=== PATIENT | female | born 1965 | race Caucasian/White ===

== ENCOUNTER 2019-08-20 09:16 | Emergency (ER) | payer MEDICARE, BC ==
[2019-08-20] MEDS ORDERED: Albuterol/Ipratropium 3.0-0.5 MG/3 ML Neb Soln NEB ONE ×2 (09:35→10:06)
--- NOTE | 2019-08-20 09:44 | EDM.PDOC ---
ED HPI GENERAL MEDICAL PROBLEM - General Chief Complaint: Respiratory Problem Stated Complaint: SOB Time Seen by Provider: 08/20/19 09:30 Source of Information: Reports: Patient History Limitations: Reports: No Limitations - History of Present Illness INITIAL COMMENTS - FREE TEXT/NARRATIVE: pt states she has COPD , fell ill on Tuesday with cough , was seen in clinic on tuesday and prescribed and antibiotic, vomiting alot on tuesday but tuesday felt better so went to the [facility] . Since then has been worse , cough more productive , has sob with tightness in chest , cough with pink tinge , has been on OTC cough medication states she does not have an inhaler, does not use oxygen at home Onset: Gradual Onset Date: 08/13/19 Duration: Getting Worse Location: Reports: Chest Quality: Reports: Ache, Pressure Severity: Moderate Improves with: Reports: Rest. Denies: Medication Worsens with: Reports: Breathing, Movement Context: Reports: Other Associated Symptoms: Reports: Cough, Fever/Chills, Headaches, Loss of Appetite, Malaise, Nausea/Vomiting Other Treatments [employer]: antibioitcs and OTC med for cough throat Pain Score (Numeric/FACES): 3 - Related Data Allergies Allergy/AdvReac Type Severity Reaction Status Date / Time morphine Allergy Respiratory Verified 08/30/14 11:25 Distress Home Meds: Home Meds guaiFENesin [Mucinex] 600 mg PO BID #30 tab.er.12h 08/20/19 [Rx] predniSONE 40 mg PO WITHBREAKFAST #5 tab 08/20/19 [Rx] Social & Family History - Tobacco Use Smoking Status *Q: Former Smoker Years of Tobacco use: 15 Used Tobacco, but Quit: Yes Month/Year Tobacco Last Used: 08/2002 - Caffeine Use Caffeine Use: Reports: Soda ED ROS GENERAL - Review of Systems Review Of Systems: Comprehensive ROS is negative, except as noted in HPI. Constitutional: Reports: Chills, Malaise HEENT: Reports: No Symptoms Respiratory: Reports: Shortness of Breath, Wheezing, Cough, Sputum Cardiovascular: Reports: Dyspnea on Exertion. Denies: Chest Pain, Edema Endocrine: Reports: Fatigue GI/Abdominal: Reports: No Symptoms : Reports: No Symptoms Musculoskeletal: Reports: No Symptoms Skin: Reports: No Symptoms Neurological: Reports: No Symptoms Psychiatric: Reports: No Symptoms Hematologic/Lymphatic: Reports: No Symptoms ED EXAM, GENERAL - Physical Exam Exam: See Below Exam Limited By: No Limitations General Appearance: Alert, WD/WN, No Apparent Distress Eye Exam: Bilateral Eye: EOMI Ears: Normal External Exam Ear Exam: Bilateral Ear: Auricle Normal, TM normal Nose: Normal Inspection. No: Clear Rhinorrhea Throat/Mouth: Normal Oropharynx Head: Atraumatic, Normocephalic, Facial Tenderness Neck: Supple, Non-Tender, Full Range of Motion Respiratory/Chest: Decreased Breath Sounds (reduced aeration bilaterally), Rhonchi, Wheezing (scattered in both lungs) Cardiovascular: Regular Rate, Rhythm GI/Abdominal: Soft, Non-Tender Back Exam: Normal Inspection, Full Range of Motion Extremities: Normal Range of Motion, Non-Tender, No Pedal Edema Neurological: Alert, Oriented, Normal Cognition, Normal Gait Psychiatric: Normal Affect Skin Exam: Warm Course - Vital Signs Last Recorded V/S: Last Vital Signs Temp 36.4 C 08/20/19 09:20 Pulse 81 08/20/19 10:20 Resp 24 H 08/20/19 10:20 BP 149/70 H 08/20/19 10:20 Pulse Ox 93 L 08/20/19 10:20 - Orders/Labs/Meds Orders: Active Orders 24 hr Category Date Time Status RT Aerosol Therapy [RC] ASDIRECTED Care 08/20/19 09:35 Active RT Aerosol Therapy [RC] ASDIRECTED Care 08/20/19 10:06 Active Chest 2V [CR] Stat Exams 08/20/19 09:45 Taken Meds: Medications Discontinued Medications Generic Name Dose Route Start Last Admin Trade Name Gaby PRN Reason Stop Dose Admin Albuterol/Ipratropium 3 ml 08/20/19 09:35 08/20/19 09:43 Duoneb 3.0-0.5 Mg/3 Ml NEB 08/20/19 09:36 3 ml ONETIME ONE Administration Albuterol/Ipratropium 3 ml 08/20/19 10:06 08/20/19 10:14 Duoneb 3.0-0.5 Mg/3 Ml NEB 08/20/19 10:07 3 ml ONETIME ONE Administration Ceftriaxone Sodium 1 gm 08/20/19 10:17 Rocephin IM 08/20/19 10:18 ONETIME ONE Guaifenesin 1,200 mg 08/20/19 09:47 08/20/19 10:14 Mucinex PO 08/20/19 09:48 1,200 mg ONETIME ONE Administration Prednisone 40 mg 08/20/19 09:46 08/20/19 10:14 Prednisone PO 08/20/19 09:47 40 mg ONETIME ONE Administration - Re-Assessments/Exams Free Text/Narrative Re-Assessment/Exam: 08/20/19 10:19 had initial duoneb, lungs had more aeration , but noted now to have basal crackles especially in the left lung base. Chest xray shows increased lung marking s, will repeat Duoneb Free Text/Narrative Re-Assessment/Exam: 08/20/19 10:33 seems much better after 2nd doneb, pt has symbicort and Proair at home, Encouraged to use them . Will need to complete course of augmentin as prescribed 08/20/19 10:37 cxray showed increased lung markings suggestive of inflammation in the airways Departure - Departure Time of Disposition: 10:40 Disposition: Home, Self-Care 01 Condition: Fair Clinical Impression: COPD exacerbation, Wheezing on auscultation, Acute bronchitis - Discharge Information *PRESCRIPTION DRUG MONITORING PROGRAM REVIEWED*: Not Applicable *COPY OF PRESCRIPTION DRUG MONITORING REPORT IN PATIENT BRENDA: Not Applicable Prescriptions: guaiFENesin [Mucinex] 600 mg PO BID #30 tab.er.12h predniSONE 40 mg PO WITHBREAKFAST #5 tab Instructions: Chronic Obstructive Pulmonary Disease Exacerbation, [id number] Referrals: PCP,Not In Area [Primary Care Provider] - Forms: ED Department Discharge Sepsis Event Note - Evaluation Sepsis Screening Result: No Definite Risk - Focused Exam Vital Signs: Vital Signs Temp Pulse Resp BP Pulse Ox 08/20/19 10:20 81 24 H 149/70 H 93 L 08/20/19 09:20 36.4 C 81 24 H 148/68 H 93 L Date Exam was Performed: 08/20/19 Time Exam was Performed: 10:33 - My Orders Last 24 Hours: My Active Orders 08/20/19 09:35 RT Aerosol Therapy [RC] ASDIRECTED 08/20/19 09:45 Chest 2V [CR] Stat 08/20/19 10:06 RT Aerosol Therapy [RC] ASDIRECTED - Assessment/Plan Last 24 Hours: My Active Orders 08/20/19 09:35 RT Aerosol Therapy [RC] ASDIRECTED 08/20/19 09:45 Chest 2V [CR] Stat 08/20/19 10:06 RT Aerosol Therapy [RC] ASDIRECTED
[2019-08-20] MEDS ORDERED: predniSONE 20 MG Tab PO ONE (09:46)
[2019-08-20] MEDS ORDERED: guaiFENesin 600 MG Tab.ER PO ONE (09:47)
[2019-08-20] MEDS ORDERED: cefTRIAXone 1 GM Vial IM ONE (10:17)
[2019-08-20 10:42] VITALS: BP 138/89; PULSE 84
--- NOTE | 2019-08-20 11:23 | CR ---
INDICATION: Cough and shortness of breath. CHEST, 2 VIEWS: PA and lateral views of the chest, 08/20/19, were compared with 08/30/14 and revealed the heart to appear enlarged and increased in size compared with the previous study. Pulmonary vasculature is slightly prominent raising question of a minimal or early CHF. Additionally, there is interstitial and some alveolar infiltration in the mid-to -lower lung correia alveoli, mostly in the lung bases and right midlung field laterally. Findings may represent pneumonia and pleuritis, although acute pulmonary edema of an unusual type could be present. The possibility of aspiration pneumonia would be a consideration. A minimal dextroconcave scoliosis of the thoracic spine is noted. Flattened diaphragm leaves, slightly prominent AP diameter and mild hyperaeration also suggest the possibility of COPD. IMPRESSION: 1. ASHD with possible minimal or early CHF. Cannot exclude acute pulmonary edema and interstitial lung edema. 2. Infiltrates mentioned above may be on the basis of pneumonia, possibly with minimal pleuritis, as posterior sulci are not well visualized. Unusual pneumonia, such as an aspiration pneumonia, would be a consideration. MTDD
== END 2019-08-20 10:55 | disposition home or self-care (01) ==
LOC: FB.ED 09:16
DX: J44.0 Chronic obstructive pulmonary disease with (acute) lower respiratory infection (principal); J20.9 Acute bronchitis, unspecified; J44.1 Chronic obstructive pulmonary disease with (acute) exacerbation; Z88.5 Allergy status to narcotic agent; Z87.891 Personal history of nicotine dependence
CPT/HCPCS: 71046; 94640; 96372; 99284; 99285; A9270; J0696; J7620-GY

== ENCOUNTER 2022-02-01 12:26 | Emergency (ER) | payer OTHER, MEDICARE, BC ==
[2022-02-01] MEDS ORDERED: LORazepam 2 MG/ML SDV IVPUSH ONE (12:35)
[2022-02-01] MEDS ORDERED: Thiamine 100 MG Tab PO ONE (12:35)
[2022-02-01] MEDS ORDERED: Valproic Acid 250 MG Cap PO ONE (12:53)
[2022-02-01] MEDS: Sodium Chloride 0.9% 10 ML Syringe FLUSH PRN ×2 (13:05→15:07)
[2022-02-01 13:16] LABS: ESTIMATED GFR 67 mL/min (>60)
[2022-02-01] MEDS ORDERED: Acetaminophen 500 MG Tab PO ONE (13:27)
[2022-02-01] MEDS ORDERED: Atenolol 50 MG Tab PO ONE (13:27)
[2022-02-01] MEDS ORDERED: Lisinopril 20 MG Tab PO STA (13:33)
[2022-02-01] MEDS ORDERED: hydrALAZINE 20 MG/ML SDV IVPUSH ONE (13:58)
[2022-02-01] MEDS ORDERED: HYDROmorphone 2 MG/ML SDV IVPUSH ONE (14:30)
[2022-02-01] MEDS ORDERED: Ketorolac 30 MG/ML SDV IVPUSH ONE (15:22)
[2022-02-01 20:35] VITALS: BP 197/84; PULSE 64
== END 2022-02-01 16:10 ==
LOC: FB.ED 12:26
DX: R56.9 Unspecified convulsions (principal); R51.9 Headache, unspecified; J44.9 Chronic obstructive pulmonary disease, unspecified; I10 Essential (primary) hypertension; Z88.5 Allergy status to narcotic agent; Z79.899 Other long term (current) drug therapy
CPT/HCPCS: 36415; 70450; 80053; 81001; 85027; 96374; 96375; 99282; 99285-25; A9270-GY; J0360; J1170; J1885; J2060; J3490

== ENCOUNTER 2022-02-02 06:58 | Emergency (ER) | payer MEDICARE, BC ==
[2022-02-02] MEDS: diphenhydrAMINE 50 MG/ML SDV IVPUSH ONE ×2 (07:33→11:02)
[2022-02-02] MEDS: levETIRAcetam 1,000 MG in Sodium Chloride 0.9% 100 ML IV ONE (07:33)
[2022-02-02] MEDS: Prochlorperazine 10 MG/2 ML SDV IVPUSH ONE (07:34)
[2022-02-02] MEDS: Sodium Chloride 0.9% 1,000 ML IV ONE (07:35)
[2022-02-02] MEDS: Sodium Chloride 0.9% 10 ML Syringe FLUSH PRN (07:35)
[2022-02-02 07:53] LABS: ESTIMATED GFR 60 mL/min (>60)
[2022-02-02] MEDS: Ketorolac 30 MG/ML SDV IVPUSH ONE (08:55)
[2022-02-02] MEDS: LORazepam 2 MG/ML SDV IVPUSH ONE (09:11)
[2022-02-02] MEDS: Gabapentin 600 MG Tab PO ONE (10:03)
[2022-02-02 11:37] VITALS: BP 165/72; PULSE 71
== END 2022-02-02 10:25 ==
LOC: FB.ED 06:58
DX: G43.009 Migraine without aura, not intractable, without status migrainosus (principal); G40.909 Epilepsy, unspecified, not intractable, without status epilepticus; J44.9 Chronic obstructive pulmonary disease, unspecified; I10 Essential (primary) hypertension; E66.9 Obesity, unspecified; K21.9 Gastro-esophageal reflux disease without esophagitis; Z88.5 Allergy status to narcotic agent; Z79.899 Other long term (current) drug therapy; Z88.8 Allergy status to other drugs, medicaments and biological substances; Z68.41 Body mass index [BMI] 40.0-44.9, adult
CPT/HCPCS: 36415; 80048; 85025; 96361; 96365; 96375; 99282; 99285-25; A9270-GY; J0780; J1200; J1885; J1953; J2060; J3490; J7030

== ENCOUNTER 2022-02-06 12:56 | Emergency (ER) | payer MEDICARE, BC ==
[2022-02-06 13:21] VITALS: BP 153/83; PULSE 61
== END 2022-02-06 13:35 | disposition home or self-care (01) ==
LOC: FB.ED 12:56
DX: R56.9 Unspecified convulsions (principal)
CPT/HCPCS: 99281; 99284

== ENCOUNTER 2023-06-08 08:03 | Emergency (ER) | payer MEDICARE, MEDICAID ==
[2023-06-08] MEDS ORDERED: Ibuprofen 800 MG Tab PO ONE (08:20)
[2023-06-08] MEDS ORDERED: Acetaminophen 500 MG Tab PO ONE (08:20)
[2023-06-08] MEDS ORDERED: Pantoprazole 40 MG Tab.CR PO SCH (12:20)
[2023-06-09] MEDS ORDERED: Atenolol 50 MG Tab PO ONE (02:41)
[2023-06-09] MEDS ORDERED: Albuterol 6.7 GM Inhaler INH PRN (02:44)
[2023-06-09] MEDS ORDERED: Venlafaxine 75 MG Tab PO SCH ×2 (02:45→09:00)
[2023-06-09] MEDS ORDERED: levETIRAcetam 500 MG Tab PO SCH ×8 (02:45→09:00)
[2023-06-09] MEDS ORDERED: Venlafaxine 75 MG Tab PO ONE (03:39)
[2023-06-09] MEDS ORDERED: rOPINIRole 1 MG Tab PO ONE (05:16)
[2023-06-09] MEDS ORDERED: Pantoprazole 40 MG Tab.CR PO SCH (06:00)
[2023-06-09] MEDS ORDERED: Pantoprazole 40 MG Tab.CR ONE (08:46)
[2023-06-09] MEDS ORDERED: Atenolol 50 MG Tab PO SCH (09:00)
[2023-06-09] MEDS ORDERED: Gabapentin 600 MG Tab PO SCH ×4 (09:00)
[2023-06-09 09:35] VITALS: PULSE 65
[2023-06-09 15:30] VITALS: BP 144/100
[2023-06-09] MEDS ORDERED: rOPINIRole 1 MG Tab PO SCH ×4 (21:00)
[2023-06-09] MEDS ORDERED: Venlafaxine 75 MG Cap.ER PO SCH ×2 (21:00)
[2023-06-10] MEDS ORDERED: Pantoprazole 40 MG Tab.CR PO SCH (07:30)
== END 2023-06-09 15:20 | disposition home or self-care (01) ==
LOC: FB.ED 08:03
DX: F60.0 Paranoid personality disorder (principal); F22 Delusional disorders; G31.84 Mild cognitive impairment of uncertain or unknown etiology; I10 Essential (primary) hypertension; K21.9 Gastro-esophageal reflux disease without esophagitis; J44.9 Chronic obstructive pulmonary disease, unspecified; E66.9 Obesity, unspecified; Z68.41 Body mass index [BMI] 40.0-44.9, adult; Z86.16 Personal history of COVID-19; Z79.899 Other long term (current) drug therapy; Z87.891 Personal history of nicotine dependence; Z91.030 Bee allergy status; Z88.5 Allergy status to narcotic agent; Z88.6 Allergy status to analgesic agent; Z20.822 Contact with and (suspected) exposure to COVID-19
CPT/HCPCS: 99285; A9270-GY

== ENCOUNTER 2024-02-12 09:08 | Emergency (ER) | payer MEDICAID, MEDICARE ==
[2024-02-12] MEDS: levETIRAcetam in NaCl (iso-os) 1,000 MG in Premix Bag 1 BAG IV ONE (09:32)
[2024-02-12] MEDS: Sodium Chloride 0.9% 1,000 ML IV ONE (09:32)
[2024-02-12 09:34] LABS: BASOPHILS PERCENT AUTO 0.5 % (0.2-1.5); EOSINOPHILS ABSOLUTE AUTO 0.1 x10-3/uL (0.0-0.8); EOSINOPHILS PERCENT AUTO 0.8 % (0.6-8.1); HEMATOCRIT 34.7 % (34.2-48.2); HEMOGLOBIN 11.6 g/dL (11.4-15.5); LYMPHOCYTES ABSOLUTE AUTO 1.1 x10-3/uL (1.0-4.4); LYMPHOCYTES PERCENT AUTO 13.1 % (18.4-52.1); MEAN CORPUSCULAR HEMOGLOBIN 31.2 pg (23.9-33.9); MEAN CORPUSCULAR HGB CONC 33.5 g/dL (31.9-34.8); MEAN CORPUSCULAR VOLUME 93.1 fL (76.7-100.5); MEAN PLATELET VOLUME 8.9 fL (7.1-12.4); MONOCYTES ABSOLUTE AUTO 0.8 x10-3/uL (0.3-1.0); MONOCYTES PERCENT AUTO 8.9 % (4.4-15.7); NEUTROPHILS ABSOLUTE AUTO 6.7 x10-3/uL (1.5-6.3); NEUTROPHILS PERCENT AUTO 76.7 % (30.8-76.2); PLATELET COUNT,PLT 288 x10(3)uL (151-488); RED BLOOD CELL COUNT 3.73 x10(6)uL (3.60-5.20); RED CELL DISTRIBUTION WIDTH 14.3 % (12.3-16.5); WHITE BLOOD CELL COUNT,WBC 8.7 x10-3/uL (3.0-10.3)
[2024-02-12 09:45] LABS: A/G RATIO 0.8; ALANINE AMINOTRANSFERASE,ALT 29 U/L (12-36); ALBUMIN 3.3 g/dL (3.5-5.2); ALKALINE PHOSPHATASE 89 IU/L (56-112); ASPARTATE AMNIOTRANSFERASE,AST 35 IU/L (5-25); BILIRUBIN TOTAL 0.4 mg/dL (0.1-1.3); BLOOD UREA NITROGEN,BUN 5 mg/dL (7-18); CALCIUM 9.2 mg/dL (8.6-10.2); CARBON DIOXIDE,CO2 29 mmol/L (21-32); CHLORIDE,CL 102 mmol/L (100-110); ESTIMATED GFR 66 mL/min (>60); GLUCOSE RANDOM 99 mg/dL (80-116); PROTEIN TOTAL,TP 7.4 g/dL (6.0-8.0); SODIUM,NA 141 mmol/L (135-145)
[2024-02-12 09:46] LABS: POTASSIUM,K 2.7 mmol/L (3.5-5.3)
[2024-02-12 10:06] LABS: BILIRUBIN,URINE NEGATIVE (NEGATIVE); GLUCOSE,URINE NORMAL (NORMAL); KETONES,URINE NEGATIVE (NEGATIVE); LEUKOCYTE ESTERASE,URINE NEGATIVE (NEGATIVE); NITRITE,URINE NEGATIVE (NEGATIVE); OCCULT BLOOD,URINE NEGATIVE (NEGATIVE); PROTEIN,URINE NEGATIVE (NEGATIVE); UROBILINOGEN,URINE NORMAL (NEGATIVE)
[2024-02-12 10:13] LABS: APPEARANCE,URINE CLEAR (CLEAR); BACTERIA,URINE FEW (NS); COLOR,URINE YELLOW (YELLOW); RBC,URINE 0-5 (0-5); SQUAMOUS EPITHELIAL CELLS,UR MODERATE (NS,R,O); WBC,URINE 0-5 (0-5)
[2024-02-12 10:14] LABS: AMPHETAMINES SCREEN, URINE POSITIVE (NEGATIVE); BARBITURATE SCREEN,URINE NEGATIVE (NEGATIVE); BENZODIAZEPINES SCREEN,URINE NEGATIVE (NEGATIVE); BUPRENORPHINE SCREEN,URINE NEGATIVE (NEGATIVE); METHADONE SCREEN, URINE NEGATIVE (NEGATIVE); METHAMPHETAMINE SCREEN, URINE NEGATIVE (NEGATIVE); OXYCODONE SCREEN,URINE NEGATIVE (NEGATIVE); THC SCREEN,URINE NEGATIVE (NEGATIVE)
[2024-02-12] MEDS: Potassium Chloride 20 MEQ in Premix Bag 1 BAG IV ONE ×2 (10:19→14:40)
[2024-02-12] MEDS: LORazepam 2 MG/ML SDV IVPUSH ONE (12:20)
[2024-02-12] MEDS: Acetaminophen 500 MG Tab PO ONE (14:13)
[2024-02-12] MEDS: levETIRAcetam 500 MG in Sodium Chloride 0.9% 100 ML IV ONE (14:17)
[2024-02-12 15:51] VITALS: BP 142/51; PULSE 94
[2024-02-12] MEDS: LORazepam 1 MG Tab PO ONE (16:34)
[2024-02-14 23:56] LABS: KEPPRA (LEVETIRACETAM) <2 ug/mL (10-40)
== END 2024-02-12 16:45 ==
LOC: FB.ED 09:08
DX: G40.909 Epilepsy, unspecified, not intractable, without status epilepticus (principal); E87.6 Hypokalemia; F15.10 Other stimulant abuse, uncomplicated; F22 Delusional disorders; I10 Essential (primary) hypertension; K21.9 Gastro-esophageal reflux disease without esophagitis; E66.9 Obesity, unspecified; Z86.16 Personal history of COVID-19; Z79.899 Other long term (current) drug therapy; Z91.014 Allergy to mammalian meats; Z88.5 Allergy status to narcotic agent; Z88.8 Allergy status to other drugs, medicaments and biological substances
CPT/HCPCS: 36415; 70450; 71045; 73030; 80053; 80177; 80307; 81001; 84484; 85025; 93005; 96361; 96365; 96366; 96367; 96375; 96376; 99285; A9270; J1953; J2060; J3480; J3490; J7030

== ENCOUNTER 2025-05-01 10:42 | Emergency (ER) | payer MEDICARE ==
[2025-05-01] MEDS: Sodium Chloride 0.9% 10 ML Syringe FLUSH PRN (11:10)
[2025-05-01 11:18] LABS: BASOPHILS ABSOLUTE AUTO 0.1 x10-3/uL (0.0-0.1); BASOPHILS PERCENT AUTO 0.7 % (0.2-1.5); EOSINOPHILS ABSOLUTE AUTO 0.2 x10-3/uL (0.0-0.8); EOSINOPHILS PERCENT AUTO 1.9 % (0.6-8.1); LYMPHOCYTES ABSOLUTE AUTO 1.2 x10-3/uL (1.0-4.4); LYMPHOCYTES PERCENT AUTO 11.4 % (18.4-52.1); MEAN PLATELET VOLUME 8.2 fL (7.1-12.4); MONOCYTES ABSOLUTE AUTO 0.7 x10-3/uL (0.3-1.0); MONOCYTES PERCENT AUTO 6.9 % (4.4-15.7); NEUTROPHILS ABSOLUTE AUTO 8.5 x10-3/uL (1.5-6.3); NEUTROPHILS PERCENT AUTO 79.1 % (30.8-76.2); PLATELET COUNT,PLT 235 x10(3)uL (151-488); RED BLOOD CELL COUNT 3.02 x10(6)uL (3.60-5.20); RED CELL DISTRIBUTION WIDTH 17.6 % (12.3-16.5); WHITE BLOOD CELL COUNT,WBC 10.7 x10-3/uL (3.0-10.3)
[2025-05-01] MEDS: Albuterol 0.083% 2.5 MG/3 ML Neb Soln NEB ONE ×2 (11:20→12:34)
[2025-05-01 11:21] LABS: BLOOD UREA NITROGEN,BUN 12 mg/dL (7-18); CARBON DIOXIDE,CO2 27 mmol/L (21-32); CHLORIDE,CL 105 mmol/L (100-110); CREATININE 1.1 mg/dL (0.55-1.02); EST CRCL DRUG DOSING (CG) 52.82 mL/min; ESTIMATED GFR 59 mL/min (>60); GLUCOSE RANDOM 91 mg/dL (80-116); POTASSIUM,K 3.7 mmol/L (3.5-5.3); SODIUM,NA 140 mmol/L (135-145)
[2025-05-01] MEDS: methylPREDNISolone Sodium Succinate 125 MG/2 ML SDV IVPUSH ONE (11:21)
[2025-05-01 11:27] LABS: BASE EXCESS VENOUS,POC 0 mmol/L (-2 - 3+); PCO2 VENOUS,POC 33 mmHg (41-51); PH VENOUS,POC 7.46 pH Units (7.32-7.43)
[2025-05-01 11:32] LABS: A/G RATIO 0.7; ALANINE AMINOTRANSFERASE,ALT 24 U/L (12-36); ASPARTATE AMNIOTRANSFERASE,AST 32 IU/L (5-25); BILIRUBIN TOTAL 0.2 mg/dL (0.1-1.3); PROTEIN TOTAL,TP 7.4 g/dL (6.0-8.0)
[2025-05-01 11:34] LABS: PRO B-TYPE NATRIUR PEPT,BNPPRO 661.0 pg/mL (<=125)
[2025-05-01 13:30] VITALS: BP 141/67; PULSE 112
== END 2025-05-01 13:40 | disposition home or self-care (01) ==
LOC: FB.ED 10:42
DX: J44.1 Chronic obstructive pulmonary disease with (acute) exacerbation (principal); I10 Essential (primary) hypertension; K21.9 Gastro-esophageal reflux disease without esophagitis; Z86.16 Personal history of COVID-19; Z79.899 Other long term (current) drug therapy; Z88.5 Allergy status to narcotic agent; Z87.891 Personal history of nicotine dependence
CPT/HCPCS: 36415; 71045; 80053; 83735; 83880; 84484; 85025; 86140; 93005; 94640; 96374; 99285; A9270; J2919